=== PATIENT | male | born 1945 | race Caucasian/White ===

== ENCOUNTER 2023-05-29 13:50 | Outpatient (AMB) | payer MEDICARE, SELFPAY ==
--- NOTE | 2023-05-29 14:13 | HO.SPINEOV ---
Intake Intake Visit Reasons: Lower back pain Intake Note: Mr. Monroe is here today c/o low back pain. MRI done @ [place]/brought disc. Previous surgery 1999. [employer] Required: No Assessment & Plan Assessment & Plan (1) Lumbar stenosis with neurogenic claudication: Code(s): M48.062 - Spinal stenosis, lumbar region with neurogenic claudication Plan Dear colleague On 05/29/2023, I saw Mr. Sy Monroe with a new complaint of pain and numbness predominantly in his right leg with walking and standing. I have operated on this patient in the past and performed initially an L4-5 lumbar decompression followed by an L4-5 minimally invasive fusion to correct a lumbar spondylolisthesis. He states that the new symptoms started approximately 6 months ago. He cannot walk or stand for long distances or time. He has to sit down. He brought in a new MRI of the lumbar spine done at [facility] at [facility] on 04/24/2023 that shows an adjacent segmental stenosis L3-4. I would obtain standing x-rays today that show no signs of instability. We discussed options. Normally, I would extend the fusion to L3-4. However the patient denies any back pain and therefore I offered him a unilateral L3-4 lumbar decompression, right-sided approach to address the central stenosis. He will return to my office when the symptoms are severe enough to undergo this procedure. I spent 30 minutes in this consult for preparation, review of imaging and discussing plan of care. Thank you for letting me take care of your patient. Pro Camacho MD, PhD Spine Fellowship Trained Neurosurgeon Director, [facility] Orders: Orders XR lumbar spine 4V min Today M43.16 - Spondylolisthesis, lumbar region, M48.062 - Spinal stenosis, lumbar region with neurogenic claudication, M51.36 - Other intervertebral disc degeneration, lumbar region Coding Level of Care Code New Pt Level 3 (44849) Diagnoses Lumbar stenosis with neurogenic claudication M48.062
== END 2023-05-29 16:16 | disposition home or self-care (01) ==
PROVIDERS: PCP Family Medicine; Visit Provider Neurological Surgery
DX: M48.062 Spinal stenosis, lumbar region with neurogenic claudication (principal)
CPT/HCPCS: 99203; 99213

== ENCOUNTER 2023-05-29 13:50 | Outpatient (REF) | payer MEDICARE, SELFPAY ==
--- NOTE | ~2023-05-29 | XR_ITS ---
EXAMINATION: XR LUMBOSACRAL SPINE WITH OBLIQUES CLINICAL INFORMATION: Spinal stenosis with neurogenic claudication COMPARISON: None available. TECHNIQUE: AP, lateral, lateral flexion and extension views of lumbar cyst FINDINGS: Patient is status post posterior fusion at the level of L4-L5 with pedicle screws is and vertical rods. There is grade 1 anterior listhesis of L3 over L4, not exaggerated on flexion or extension views. There is mild narrowing at the level of L4-L5 with likely intervertebral spacer present and there is mildly increased anterior listhesis on flexion view, neutralized on extension view. Pedicle screws are seen at the level of L3 bilaterally. There are multilevel degenerative changes of all levels with marginal spurring. XR/XR lumbar spine 4V min IMPRESSION: Multilevel degenerative changes with grade 1 anterolisthesis of L3 over L4. Mild instability at the level of L4-L5.
== END 2023-05-29 13:51 | disposition home or self-care (01) ==
LOC: HO.HOSX 13:50
PROVIDERS: PCP Family Medicine; Visit Provider Neurological Surgery
DX: M43.16 Spondylolisthesis, lumbar region (principal); M48.062 Spinal stenosis, lumbar region with neurogenic claudication; M51.36 Other intervertebral disc degeneration, lumbar region
CPT/HCPCS: 72110